=== PATIENT | male | born 1990 | race American Indian/Alaskan Native ===

== ENCOUNTER 2019-03-19 18:21 | Emergency (ER) | payer MEDICAID ==
[2019-03-19] MEDS ORDERED: NACL 0.9% 1000 ML 1,000 ML IV ONE (19:07)
[2019-03-19] MEDS ORDERED: APRESOLINE IV ONE ×2 (20:23→23:43)
--- NOTE | 2019-03-19 20:28 | Emergency Department Report ---
HPI - General Chief Complaint: Abdominal Pain Time Seen by Provider: 03/19/19 20:11 - HPI HPI: 28-year-old -[place] male presents to the emergency department via EMS after he passed out while walking towards his mother's house. He says that it is a long walk between his house and his mother's and he did not take anything to drink and did not eat anything today. He says that someone gave him some soda to drink but this did not help. He felt shaky and then woke up on the ground and someone had called EMS. He is currently awake and alert and does not have any significant complaints other than being thirsty and hungry. He has a past medical history of hypertension but does not have any medication for it. He does not have a primary care physician. Denies any illicit drug use or alcohol use. ED Past Medical Hx - Past Medical History Previous Medical History?: Yes Hx Hypertension: Yes - Surgical History Past Surgical History?: No - Social History Smoking Status: Current Every Day Smoker Substance Use Type: Marijuana ED Review of Systems ROS: Stated complaint: HEAT EXHAUSTION Other details as noted in HPI Comment: All other systems reviewed and negative Constitutional: denies: chills, fever Eyes: denies: eye pain, vision change ENT: denies: ear pain, throat pain Respiratory: denies: cough, shortness of breath Cardiovascular: syncope. denies: chest pain Gastrointestinal: denies: vomiting, diarrhea Genitourinary: denies: dysuria, discharge Skin: denies: rash, lesions Neurological: denies: headache, numbness Physical Exam - Physical Exam Vital Signs: Vital Signs 03/19/19 19:23 Temperature 97.8 F Pulse Rate 99 H Respiratory 16 Rate Blood Pressure 144/77 [Left] O2 Sat by Pulse 99 Oximetry Physical Exam: GENERAL: The patient is well-developed well-nourished. HENT: Normocephalic. Atraumatic. Patient has moist mucous membranes. EYES: Extraocular motions are intact. Pupils equal reactive to light bilaterally. No nystagmus. NECK: Supple. Trachea is midline. CHEST/LUNGS: Clear to auscultation. There is no respiratory distress noted. HEART/CARDIOVASCULAR: Regular. There is no tachycardia. There is no murmur. ABDOMEN: Abdomen is soft, nontender. Patient has normal bowel sounds. There is no abdominal distention. SKIN: Skin is warm and dry. NEURO: The patient is awake, alert, and oriented. The patient is cooperative. The patient has no focal neurologic deficits. The patient has normal speech. Cranial nerves II through XII grossly intact. MUSCULOSKELETAL: There is no tenderness or deformity. There is no limitation range of motion. There is no evidence of acute injury. BACK: There is both midline and bilateral paraspinal tenderness to palpation to the lower thoracic and lumbar back, but there is no step-off or deformity. ED Course Vital Signs 03/19/19 19:23 Temperature 97.8 F Pulse Rate 99 H Respiratory 16 Rate Blood Pressure 144/77 [Left] O2 Sat by Pulse 99 Oximetry ED Medical Decision Making - Lab Data Result diagrams: 03/19/19 19:59 03/19/19 19:59 - Radiology Data Radiology results: image reviewed interpreted by me: X-rays of the thoracic and lumbar spines do not show any fracture, subluxation, or any other acute process. - Medical Decision Making Patient presents to the emergency department after having some type of a syncopal episode while trying to walk to his mother's house. Since being in the emergency department he has been awake, alert, oriented. There have been no focal, motor or sensory deficits and his cranial nerves are intact. He does not complaining of any headache or vision change, slurred speech or any other neurological deficits. For this reason, I did not feel that CT imaging of the head was necessary at this time. His labs have been mostly unremarkable. He had some borderline low blood sugar at a serum glucose of about 70 so he was given something to eat. His vital signs are stable throughout his ED course. Late in his ED workup, the patient started complaining of some back pain. It is both midline and bilateral paraspinal but there is no step-off or deformity. X-rays were done of the thoracic and lumbar spines that did not show any fractures, subluxations, or any acute processes. The patient was seen ambulatory in the emergency department and both appears and feels stable. Patient was encouraged to follow up with primary care and was given a referral for an orthopedist. - Differential Diagnosis vasovagal, orthostatic hypotension, electrolyte abnormalities Critical Care Time: No Critical care attestation.: If time is entered above; I have spent that time in minutes in the direct care of this critically ill patient, excluding procedure time. ED Disposition Clinical Impression: Syncope Qualifiers: Syncope type: unspecified Qualified Code(s): R55 - Syncope and collapse Hypertension Qualifiers: Hypertension type: essential hypertension Qualified Code(s): I10 - Essential (primary) hypertension Back pain Qualifiers: Back pain location: low back pain Chronicity: acute Back pain laterality: bilateral Sciatica presence: without sciatica Qualified Code(s): M54.5 - Low back pain Disposition: TO HOME OR SELFCARE Is pt being admited?: No Condition: Stable Instructions: Syncope (ED), Hypertension (ED) Additional Instructions: Please follow up with a primary care physician in the next few days. I am giving him a referral for a local orthopedist, Dr. Melo, to follow up regarding her back pains. Return to the emergency Department with any worsening of your symptoms or any acute distress. Referrals: TAO VILLANUEVA MD [Staff Physician] - 3-5 Days GIGI MELO MD [Staff Physician] - 3-5 Days Time of Disposition: 03:25
[2019-03-19 20:50] LABS: Hematocrit 45.7 % (35.5-45.6); Hemoglobin 15.3 gm/dl (11.8-15.2); Mean Corpuscular HGB Conc 33 % (32-34); Mean Corpuscular Volume 88 fl (84-94); Red Blood Count 5.21 M/mm3 (3.65-5.03); Red Cell Distribution Width 14.9 % (13.2-15.2)
[2019-03-19 21:05] LABS: Bilirubin,Urine NEG (Negative); Blood,Urine SM (Negative); Color,Urine Yellow (Yellow); Mucus,Urine 3+ /HPF; Urobilinogen,Urine < 2.0 mg/dL (<2.0)
[2019-03-19 21:08] LABS: Amphetamine Screen,Urine PRESUMPTIVE NEGATIVE; Benzodiazepines Screen,Urine PRESUMPTIVE NEGATIVE; Cocaine Screen,Urine PRESUMPTIVE NEGATIVE; Methadone Screen,Urine PRESUMPTIVE NEGATIVE; Opiate Screen,Urine PRESUMPTIVE NEGATIVE
[2019-03-19 21:09] LABS: Alanine Aminotransferase 15 units/L (7-56); Albumin 4.8 g/dL (3.9-5); BUN/Creatinine Ratio 15; Blood Urea Nitrogen 17 mg/dL (9-20); Calcium 9.5 mg/dL (8.4-10.2); Hemolysis Index 26
[2019-03-19 21:23] LABS: Platelet Count 75 K/mm3 (140-440)
[2019-03-19 21:40] LABS: Cannabinoid Screen,Urine PRESUMPTIVE POSITIVE
[2019-03-19] MEDS ORDERED: TORADOL IV ONE (22:50)
--- NOTE | 2019-03-20 03:20 | XRay Report ---
PROCEDURE: XR SPINE THORACIC 3V TECHNIQUE: Thoracic spine radiographs, including AP and lateral projections. HISTORY: back pain COMPARISONS: None FINDINGS: Alignment: Normal Vertebral body height: Normal Disk spaces: Normal Fracture(s): None Bone mineralization: Normal IMPRESSION: Normal Examination This document is electronically signed by Sarika Gibson DO., March 20 2019 03:18:12 AM ET
--- NOTE | 2019-03-20 03:21 | XRay Report ---
PROCEDURE: XR SPINE LUMBOSACRAL 2-3V TECHNIQUE: Lumbar spine radiographs, AP, lateral and spot views. HISTORY: back pain COMPARISONS: None . FINDINGS: Alignment: Normal . Vertebral body heights/Disk spaces: Normal . Fracture(s): None . Facets: Normal . Bone mineralization: Normal . IMPRESSION: Normal Examination . This document is electronically signed by Sarika Gibson DO., March 20 2019 03:19:03 AM ET
[2019-03-20 04:12] VITALS: BP 139/84
== END 2019-03-20 04:13 | disposition home or self-care (01) ==
LOC: ED 18:21
DX: I10 Essential (primary) hypertension (principal); M54.5 Low back pain; F17.200 Nicotine dependence, unspecified, uncomplicated; F12.90 Cannabis use, unspecified, uncomplicated
CPT/HCPCS: 36415; 72072; 72100; 80053; 80307; 81001; 82550; 82962; 84443; 84484; 85027; 87086; 96361; 96374; 96375; 96376; 99284; J0360; J1885; J7030